=== PATIENT | female | born 2000 | race Caucasian/White ===

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

== ENCOUNTER 2020-04-19 11:29 | Emergency (ER) | payer OTHER ==
[2020-04-19 12:25] LABS: GLUCOSE, URINE (UA) NEGATIVE (NEGATIVE); KETONES,URINE (UA) >=80 mg/dL (NEGATIVE); LEUKOCYTE ESTERASE, URINE NEGATIVE (NEGATIVE); NITRITE,URINE NEGATIVE (NEGATIVE); OCCULT BLOOD,URINE LARGE (NEGATIVE); PROTEIN,URINE 100 mg/dL (NEGATIVE); UROBILINOGEN,URINE 0.2 (NORMAL) E.U./dL (NORMAL)
--- NOTE | 2020-04-19 12:30 | ED Physician Documentation ---
PD HPI FEMALE - Stated complaint Stated Complaint: FEMALE - Chief complaint Chief Complaint: Abd Pain - History obtained from History obtained from: Patient - Additional information Additional information: 20-year-old woman has a 1-year-old copper IUD in place. She also has a history of homozygous factor V Leiden without history of DVT or PE but because of that cannot take hormonal control. For the last 2 months she has had daily cramping and bleeding going through about 5 pads per day. Pain is central and nonradiating. Declines pain medication at this juncture. Review of Systems Constitutional: reports: Reviewed and negative Cardiac: reports: Reviewed and negative Respiratory: reports: Reviewed and negative PD PAST MEDICAL HISTORY - Past Medical History Cardiovascular: None Respiratory: None Neuro: None, Migraines Endocrine/Autoimmune: None GI: C.difficile : None Psych: None Musculoskeletal: None Derm: None Other Past Medical History: Dx with toxic shock in 2017. Factor 5. Bariatric surgery February 2020. - Past Surgical History Past Surgical History: No General: Gastric surgery - Present Medications Home Medications: Ambulatory Orders Medication Instructions Recorded Confirmed Aspirin 81 mg PO 09/14/19 SUMAtriptan [Imitrex] 25 mg PO BID PRN #10 tablet 09/14/19 - Allergies Allergies/Adverse Reactions: Allergies Allergy/AdvReac Type Severity Reaction Status Date / Time No Known Drug Allergies Allergy Verified 04/19/20 11:38 - Social History Does the pt smoke?: No Smoking Status: Never smoker - Immunizations Immunizations are current?: Yes PD ED PE NORMAL - Vitals Vital signs reviewed: Yes - General General: Alert and oriented X 3, No acute distress - Abdomen Abdomen: Normal bowel sounds, Soft, Non tender - Female Female : 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 The IUD was removed without issue.) - Derm Derm: Normal color, Warm and dry, No rash - Extremities Extremities: No edema, No calf tenderness / cord - Neuro Neuro: Alert and oriented X 3, Normal speech Results - Vitals Vitals: Vital Signs - 24 hr 04/19/20 04/19/20 11:39 13:35 Temperature 36.5 C 37.1 C Heart Rate 99 70 Respiratory 16 16 Rate Blood Pressure 130/96 H 134/83 H O2 Saturation 98 97 Oxygen O2 Source Room air - Labs Labs: Laboratory Tests 04/19/20 04/19/20 04/19/20 12:10 12:22 12:22 WBC 5.5 RBC 4.77 Hgb 14.8 Hct 42.8 MCV 89.7 MCH 31.0 MCHC 34.6 RDW 14.0 Plt Count 203 MPV 10.3 Neut # (Auto) 3.4 Lymph # (Auto) 1.5 [place] # (Auto) 0.4 Eos # (Auto) 0.1 Baso # (Auto) 0.0 Absolute Nucleated RBC 0.00 Nucleated RBC % 0.0 Sodium 138 Potassium 3.3 L Chloride 104 Carbon Dioxide 21 Anion Gap 13.0 BUN 9 Creatinine 0.7 Estimated GFR (MDRD) 107 Glucose 82 Calcium 9.4 Total Bilirubin 1.3 H AST 18 ALT 12 Alkaline Phosphatase 66 Total Protein 7.6 Albumin 4.8 Globulin 2.8 Albumin/Globulin Ratio 1.7 Lipase 54 H Serum HCG, Qual Urine Color RED/BLOODY Urine Clarity BLOODY Urine pH 6.0 Ur Specific [place] >=1.030 H Urine Protein 100 H Urine Glucose (UA) NEGATIVE Urine Ketones >=80 H Urine Occult Blood LARGE H Urine Nitrite NEGATIVE Urine Bilirubin NEGATIVE Urine Urobilinogen 0.2 (NORMAL) Ur Leukocyte Esterase NEGATIVE Urine RBC TNTC H Urine WBC 0-3 Ur Squamous Epith Cells FEW Squamous Urine Bacteria Few Ur Microscopic Review INDICATED Urine Culture Comments NOT INDICATED Urine HCG, Qual TNP 04/19/20 12:22 WBC RBC Hgb Hct MCV MCH MCHC RDW Plt Count MPV Neut # (Auto) Lymph # (Auto) [place] # (Auto) Eos # (Auto) Baso # (Auto) Absolute Nucleated RBC Nucleated RBC % Sodium Potassium Chloride Carbon Dioxide Anion Gap BUN Creatinine Estimated GFR (MDRD) Glucose Calcium Total Bilirubin AST ALT Alkaline Phosphatase Total Protein Albumin Globulin Albumin/Globulin Ratio Lipase Serum HCG, Qual NEGATIVE Urine Color Urine Clarity Urine pH Ur Specific [place] Urine Protein Urine Glucose (UA) Urine Ketones Urine Occult Blood Urine Nitrite Urine Bilirubin Urine Urobilinogen Ur Leukocyte Esterase Urine RBC Urine WBC Ur Squamous Epith Cells Urine Bacteria Ur Microscopic Review Urine Culture Comments Urine HCG, Qual - Rads (name of study) Pelvic sono Radiology: EMP read contemporaneously (Located in the cervix is the IUD and there is a right hemorrhagic cyst) PD MEDICAL DECISION MAKING - ED course ED course: 20-year-old woman with an IUD in place presents with 2 months worth of daily vaginal bleeding and pelvic pain. Declined pain medication. Ultrasonography demonstrates that the IUD was malpositioned after discussion she wanted it removed and this was done which should be curative. Also discussed the incidental ovarian cyst and follow-up for same was advised. Discussed the need for barrier control until follow-up with gynecology. Departure - Departure Disposition: 01 Home, Self Care Clinical Impression: Pelvic pain, Vaginal bleeding Malpositioned IUD Qualifiers: Encounter type: initial encounter Qualified Code(s): T83.32XA - Displacement of intrauterine contraceptive device, initial encounter Cyst of ovary Qualifiers: Laterality: right Qualified Code(s): N83.201 - Unspecified ovarian cyst, right side Condition: Good Record reviewed to determine appropriate education?: Yes Comments: You were seen today for ongoing Vaginal bleeding and pelvic pain which based on the ultrasound was likely due to the IUD being located in your cervix as opposed to within the uterus. After discussion we removed the IUD today, bear in mind you will need to use an alternative form of nonhormonal control (given your history of factor V Leiden) such as condoms for now. [place]. He also had an ovarian cyst, consider repeat ultrasonography in about 6 weeks to make sure that that has cleared up. Return if worsening. You can take ibuprofen as needed for the pain. Pain should be minimal after today.
[2020-04-19 12:34] LABS: BASOPHILS % (AUTO) 0.5 %; EOSINOPHILS # (AUTO) 0.1 10^3/uL (0.0-0.7); HGB - HEMOGLOBIN 14.8 g/dL (12.0-16.0); LYMPHOCYTES # (AUTO) 1.5 10^3/uL (1.5-3.5); LYMPHOCYTES % (AUTO) 26.9 %; MEAN CORPUSCULAR HGB CONC 34.6 g/dL (32.0-36.0); MEAN CORPUSCULAR VOLUME 89.7 fL (81.0-99.0); MEAN PLATELET VOLUME 10.3 fL (7.9-10.8); MONOCYTES # (AUTO) 0.4 10^3/uL (0.0-1.0); MONOCYTES % (AUTO) 7.7 %; NEUTROPHILS # (AUTO) 3.4 10^3/uL (1.5-6.6); NEUTROPHILS % (AUTO) 62.7 %; PLT - PLATELET COUNT 203 10^3/uL (130-450); RED BLOOD COUNT 4.77 10^6/uL (4.20-5.40); WHITE BLOOD COUNT 5.5 x10^3/uL (4.8-10.8)
[2020-04-19 12:37] LABS: BILIRUBIN,URINE NEGATIVE (NEGATIVE); CLARITY,URINE BLOODY (CLEAR); ICTOTEST,URINE NEGATIVE
[2020-04-19 12:38] LABS: RBC,URINE TNTC /HPF (0-5); SQUAMOUS EPITHELIAL CELL,UR FEW Squamous (<= Few)
[2020-04-19 12:39] LABS: BACTERIA,URINE Few /HPF (None Seen)
[2020-04-19 12:47] LABS: ALBUMIN 4.8 g/dL (3.2-5.5); ALBUMIN/GLOBULIN RATIO 1.7 (1.0-2.2); BILIRUBIN,TOTAL 1.3 mg/dL (0.2-1.0); CALCIUM 9.4 mg/dL (8.5-10.3); CREATININE 0.7 mg/dL (0.4-1.0); TOTAL PROTEIN 7.6 g/dL (6.7-8.2)
[2020-04-19 13:27] LABS: HCG,QUALITATIVE BLOOD NEGATIVE
--- NOTE | 2020-04-19 14:12 | Ultrasound Report ---
PROCEDURE: Pelvic w/Transvag+Doppler Comp INDICATIONS: pelvic pain, bleeding TECHNIQUE: Real-time scanning was performed of the pelvic organs, with image documentation. Additional endovagi nal scanning was necessary due to incomplete visualization of the adnexal and endometrial structures by transabdominal scanning. COMPARISON: None. FINDINGS: Transabdominal scanning: Limited scanning through the kidneys shows no hydronephrosis. No pathologi c free abdominal or pelvic fluid. Endovaginal scanning: Uterus: Uterus is normal in size at 8.1 x 3.8 x 4.5 cm. The endometrium measures 3 mm in combined t hickness. A cyst is seen along the lower uterine segment of the uterus measuring 5 mm. An IUD is seen. On these images, the IUD is low lying, seen at the level of the cervix. The right T-b ar is embedded within the right myometrium. Ovaries: The right ovary measures 5.1 x 1.7 x 3.7 cm and demonstrates a hemorrhagic appearing cyst that measures 2.2 cm. The left ovary measures 3 x 2.5 x 3.6 cm. No adnexal masses are seen. IMPRESSION: The IUD is improperly located, and is seen at the level of the cervix, with the right T-bar within th e right myometrium. Please consider a gynecology consultation, if clinically appropriate. There is a hemorrhagic cyst involving the right ovary measuring 2.2 cm. Please consider a short-term follow-up ultrasound in 6 weeks to ensure resolution/improvement. Note: Findings and recommendations discussed by telephone with Dr. Looney at 1:10 PM [place] time on Reviewed by: Austin Lyons MD on 04/19/2020 1:11 PM [facility] Approved by: Austin Lyons MD on 04/19/2020 1:11 PM [facility] Station ID: [id number]
[2020-04-19 14:36] VITALS: BP 117/83
== END 2020-04-19 14:36 | disposition home or self-care (01) ==
LOC: ED 11:29
DX: T83.32XA Displacement of intrauterine contraceptive device, initial encounter (principal); Y84.8 Other medical procedures as the cause of abnormal reaction of the patient, or of later complication, without mention of misadventure at the time of the procedure; Z30.432 Encounter for removal of intrauterine contraceptive device; R10.2 Pelvic and perineal pain; N93.9 Abnormal uterine and vaginal bleeding, unspecified; N83.201 Unspecified ovarian cyst, right side; D68.51 Activated protein C resistance; Z98.84 Bariatric surgery status; Z79.82 Long term (current) use of aspirin
CPT/HCPCS: 36415; 76830; 76856; 80053; 81001; 81003; 81025; 83690; 84703; 85025; 87086; 93975; 99284

== ENCOUNTER 2020-07-08 02:07 | Outpatient (CLI) | payer OTHER | END 2020-07-08 02:08 | disposition critical access hospital (66) | LOC: EMS 02:07 | PROVIDERS: ATTEND Surgery | DX: R10.30 Lower abdominal pain, unspecified (principal); R55 Syncope and collapse | CPT/HCPCS: A0425; A0429 ==

== ENCOUNTER 2020-07-08 02:28 | Emergency (ER) | payer OTHER ==
--- NOTE | 2020-07-08 02:33 | ED Physician Documentation ---
History of Present Illness - Stated complaint Stated Complaint: SYNCOPE/ ABD PX - History obtained from History obtained from: Patient - Additonal information Additional information: Patient is a 20-year-old female who presents by ambulance with pelvic pain. The patient reports that she has a history of factor V Leiden deficiency. She reports that she has a copper IUD in place. She reports it was placed 1 month ago. Previously she had an indwelling copper IUD that was malpositioned and had to be removed.She denies any chest pain or lower extremity pain or any history of pulmonary embolism or DVT. Review of Systems Constitutional: reports: Reviewed and negative Eyes: reports: Reviewed and negative Ears: reports: Reviewed and negative Nose: reports: Reviewed and negative Throat: reports: Reviewed and negative Cardiac: reports: Reviewed and negative Respiratory: reports: Reviewed and negative GI: reports: Reviewed and negative : reports: Other (pelvic pain) Skin: reports: Reviewed and negative Musculoskeletal: reports: Reviewed and negative Neurologic: reports: Reviewed and negative Psychiatric: reports: Reviewed and negative Endocrine: reports: Reviewed and negative Immunocompromised: reports: Reviewed and negative PD PAST MEDICAL HISTORY - Past Medical History Cardiovascular: None Respiratory: None Neuro: None, Migraines Endocrine/Autoimmune: None GI: C.difficile : None Psych: None Musculoskeletal: None Derm: None - Past Surgical History Past Surgical History: No General: Gastric surgery - Present Medications Home Medications: Ambulatory Orders Medication Instructions Recorded Confirmed Aspirin 81 mg PO DAILY 09/14/19 07/08/20 SUMAtriptan [Imitrex] 25 mg PO BID PRN #10 tablet 09/14/19 07/08/20 - Allergies Allergies/Adverse Reactions: Allergies Allergy/AdvReac Type Severity Reaction Status Date / Time No Known Drug Allergies Allergy Verified 07/08/20 02:42 - Social History Does the pt smoke?: No Smoking Status: Never smoker - Immunizations Immunizations are current?: Yes PD ED PE NORMAL - Vitals Vital signs reviewed: Yes - General General: Alert and oriented X 3, No acute distress - HEENT HEENT: PERRL - Neck Neck: Supple, no meningeal sign - Cardiac Cardiac: RRR, No murmur - Respiratory Respiratory: Clear bilaterally - Abdomen Abdomen: Normal bowel sounds, Soft, Other (tender to palpation in the lower abdomen and pelvis. 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 note.) - Derm Derm: Warm and dry - Extremities Extremities: No deformity - Neuro Neuro: Alert and oriented X 3 - Psych Psych: Normal mood, Normal affect Results - Vitals Vitals: Vital Signs - 24 hr 07/08/20 07/08/20 07/08/20 02:33 02:45 05:00 Temperature 36.8 C Heart Rate 77 60 Heart Rate [ 87 Sitting] Heart Rate [ 99 Standing] Heart Rate [ 74 Supine] Respiratory 16 16 Rate Blood Pressure 112/72 106/65 Blood Pressure 109/72 [Sitting] Blood Pressure 93/63 [Standing] Blood Pressure 117/76 [Supine] O2 Saturation 100 99 Oxygen O2 Source Room air - Labs Labs: Laboratory Tests 07/08/20 07/08/20 07/08/20 02:57 03:18 03:18 WBC 11.1 H RBC 3.86 L Hgb 12.4 Hct 36.7 L MCV 95.1 MCH 32.1 H MCHC 33.8 RDW 12.4 Plt Count 197 MPV 10.9 H Neut # (Auto) 8.2 H Lymph # (Auto) 1.9 [place] # (Auto) 0.7 Eos # (Auto) 0.1 Baso # (Auto) 0.1 Absolute Nucleated RBC 0.00 Nucleated RBC % 0.0 PT 15.7 H INR 1.4 H APTT 25.4 Sodium Potassium Chloride Carbon Dioxide Anion Gap BUN Creatinine Estimated GFR (MDRD) Glucose Lactic Acid Calcium Total Bilirubin AST ALT Alkaline Phosphatase Total Protein Albumin Globulin Albumin/Globulin Ratio Lipase Urine Color DARK YELLOW Urine Clarity CLEAR Urine pH 6.0 Ur Specific [place] >=1.030 H Urine Protein 30 H Urine Glucose (UA) NEGATIVE Urine Ketones >=80 H Urine Occult Blood NEGATIVE Urine Nitrite NEGATIVE Urine Bilirubin NEGATIVE Urine Urobilinogen 0.2 (NORMAL) Ur Leukocyte Esterase TRACE H Urine RBC 0-5 Urine WBC 0-3 Ur Squamous Epith Cells MANY Squamous H Urine Bacteria Rare Urine Casts 6-10 Hyaline Casts Urine Mucus Marked Strands Ur Microscopic Review INDICATED Urine Culture Comments NOT INDICATED Urine HCG, Qual NEGATIVE Urine Opiates Screen NEGATIVE Ur Oxycodone Screen NEGATIVE Urine Methadone Screen NEGATIVE Ur Propoxyphene Screen NEGATIVE Ur Barbiturates Screen NEGATIVE Ur Tricyclics Screen NEGATIVE Ur Phencyclidine Scrn NEGATIVE Ur Amphetamine Screen NEGATIVE U Methamphetamines Scrn NEGATIVE U Benzodiazepines Scrn NEGATIVE Urine Cocaine Screen NEGATIVE U Cannabinoids Screen NEGATIVE Ethyl Alcohol 07/08/20 07/08/20 03:18 03:18 WBC RBC Hgb Hct MCV MCH MCHC RDW Plt Count MPV Neut # (Auto) Lymph # (Auto) [place] # (Auto) Eos # (Auto) Baso # (Auto) Absolute Nucleated RBC Nucleated RBC % PT INR APTT Sodium 139 Potassium 3.3 L Chloride 105 Carbon Dioxide 22 Anion Gap 12.0 BUN 9 Creatinine 0.7 Estimated GFR (MDRD) 107 Glucose 97 Lactic Acid 1.0 Calcium 9.1 Total Bilirubin 1.2 H AST 13 ALT 10 Alkaline Phosphatase 52 Total Protein 6.5 L Albumin 4.3 Globulin 2.2 Albumin/Globulin Ratio 2.0 Lipase 27 Urine Color Urine Clarity Urine pH Ur Specific [place] Urine Protein Urine Glucose (UA) Urine Ketones Urine Occult Blood Urine Nitrite Urine Bilirubin Urine Urobilinogen Ur Leukocyte Esterase Urine RBC Urine WBC Ur Squamous Epith Cells Urine Bacteria Urine Casts Urine Mucus Ur Microscopic Review Urine Culture Comments Urine HCG, Qual Urine Opiates Screen Ur Oxycodone Screen Urine Methadone Screen Ur Propoxyphene Screen Ur Barbiturates Screen Ur Tricyclics Screen Ur Phencyclidine Scrn Ur Amphetamine Screen U Methamphetamines Scrn U Benzodiazepines Scrn Urine Cocaine Screen U Cannabinoids Screen Ethyl Alcohol < 5.0 PD MEDICAL DECISION MAKING - ED course Complexity details: reviewed old records, reviewed results, re-evaluated patient, considered differential (ovarain cyst, torsion, IUD complication.), d/w patient, d/w family, other (patient signed out at shift change to dr. henry singer.) ED course: 20 y/o f w pelvic pain. US shows free fluid and low IUD placement. Dr. Benavides consulted for evaluation. - Consults Consults: Discussed case with (DR. Jennifer Benavides. will come evaluate patient. ) Departure - Departure Clinical Impression: Pelvic pain, Hemorrhagic cyst of left ovary Malpositioned IUD Qualifiers: Encounter type: subsequent encounter Qualified Code(s): T83.32XD - Displacement of intrauterine contraceptive device, subsequent encounter
[2020-07-08] MEDS ORDERED: SODIUM CHLORIDE 0.9% 1,000 ML IV STA ×2 (02:46→06:47)
[2020-07-08 03:02] LABS: MUDS CUTOFF CONCENTRATIONS CUTOFF CONC BELOW:
[2020-07-08 03:03] LABS: GLUCOSE, URINE (UA) NEGATIVE (NEGATIVE); KETONES,URINE (UA) >=80 mg/dL (NEGATIVE); LEUKOCYTE ESTERASE, URINE TRACE (NEGATIVE); NITRITE,URINE NEGATIVE (NEGATIVE); OCCULT BLOOD,URINE NEGATIVE (NEGATIVE); PROTEIN,URINE 30 mg/dL (NEGATIVE); UROBILINOGEN,URINE 0.2 (NORMAL) E.U./dL (NORMAL)
[2020-07-08 03:05] LABS: BILIRUBIN,URINE NEGATIVE (NEGATIVE); CLARITY,URINE CLEAR (CLEAR); HCG UR QUAL NEGATIVE; ICTOTEST,URINE NEGATIVE
[2020-07-08 03:09] LABS: BACTERIA,URINE Rare /HPF (None Seen); CASTS, URINE 6-10 Hyaline Casts /LPF; MUCUS,URINE Marked Strands; RBC,URINE 0-5 /HPF (0-5); SQUAMOUS EPITHELIAL CELL,UR MANY Squamous (<= Few)
[2020-07-08 03:12] LABS: AMPHETAMINE SCREEN,URINE NEGATIVE (NEGATIVE); BENZODIAZEPINES SCREEN, URINE NEGATIVE (NEGATIVE); COCAINE SCREEN URINE NEGATIVE (NEGATIVE); METHAMPHETAMINES SCREEN, URINE NEGATIVE (NEGATIVE); OPIATE SCREEN, URINE NEGATIVE (NEGATIVE); TRICYCLIC ANTIDEPRESSANT,URINE NEGATIVE (NEGATIVE)
[2020-07-08 03:13] LABS: METHADONE SCREEN, URINE NEGATIVE (NEGATIVE); OXYCODONE SCREEN, URINE NEGATIVE (NEGATIVE); PROPOXYPHENE SCREEN, URINE NEGATIVE (NEGATIVE)
[2020-07-08 03:27] LABS: BASOPHILS # (AUTO) 0.1 10^3/uL (0.0-0.1); BASOPHILS % (AUTO) 0.5 %; EOSINOPHILS # (AUTO) 0.1 10^3/uL (0.0-0.7); EOSINOPHILS % (AUTO) 0.8 %; HGB - HEMOGLOBIN 12.4 g/dL (12.0-16.0); LYMPHOCYTES # (AUTO) 1.9 10^3/uL (1.5-3.5); LYMPHOCYTES % (AUTO) 17.5 %; MEAN CORPUSCULAR HEMOGLOBIN 32.1 pg (27.0-31.0); MEAN CORPUSCULAR HGB CONC 33.8 g/dL (32.0-36.0); MEAN CORPUSCULAR VOLUME 95.1 fL (81.0-99.0); MEAN PLATELET VOLUME 10.9 fL (7.9-10.8); MONOCYTES # (AUTO) 0.7 10^3/uL (0.0-1.0); MONOCYTES % (AUTO) 6.7 %; NEUTROPHILS # (AUTO) 8.2 10^3/uL (1.5-6.6); NEUTROPHILS % (AUTO) 74.2 %; PLT - PLATELET COUNT 197 10^3/uL (130-450); RED BLOOD COUNT 3.86 10^6/uL (4.20-5.40); RED CELL DISTRIBUTION WIDTH 12.4 % (12.0-15.0); WHITE BLOOD COUNT 11.1 x10^3/uL (4.8-10.8)
[2020-07-08 03:32] LABS: INR 1.4 (0.8-1.2); PT - PROTHROMBIN TIME 15.7 secs (9.9-12.6)
[2020-07-08 03:39] LABS: ALBUMIN 4.3 g/dL (3.2-5.5); ALKALINE PHOSPHATASE 52 IU/L (42-121); ALT ALANINE AMINOTRANSFERASE 10 IU/L (10-60); AST ASPARTATE AMINOTRANSFERASE 13 IU/L (10-42); BILIRUBIN,TOTAL 1.2 mg/dL (0.2-1.0); BUN - BLOOD UREA NITROGEN 9 mg/dL (6-20); CALCIUM 9.1 mg/dL (8.5-10.3); CARBON DIOXIDE - CO2 22 mmol/L (21-32); CHLORIDE 105 mmol/L (101-111); CREATININE 0.7 mg/dL (0.4-1.0); GLUCOSE 97 mg/dL (70-100); LIPASE 27 U/L (22-51); PARTIAL THROMBOPLASTIN TIME 25.4 secs (24.9-33.3); SODIUM 139 mmol/L (135-145); TOTAL PROTEIN 6.5 g/dL (6.7-8.2)
[2020-07-08 07:25] VITALS: BP 100/70
--- NOTE | 2020-07-08 08:29 | CONSULTATION NOTE ---
Referring Provider Consult Date: 07/08/20 History of Present Illness - History of Present Illness HPI Comment/Other: Asked by ER MD to consult for malposition of IUD and abnormal US. Came to ER today with syncope that started after onset of severe abd pain. Feels kind of like when she had PID and kind of like when her last IUD was being expelled. Currently pain is mild. PMH: factor 5 on ASA daily, has never had VTE even while on combination contraceptives. Hx of c.diff. Anemia. ADHD. Migraines. PSH: none Allergies: NKDA Meds: none SH: no t/e/d. Steady partner. ROS: no fevers. LMP 4w ago. FH: uncle with colon cancer O: AVSS Alert, comfortable, NAD Abd soft, nt/nd EFG normal Vagina pink without lesions Cervix: IUD base seen at external os. Mucoid discharge present. US read as: Abnormal appearance of left adnexa with possible mass lesion vs. complex hemorrhagic cyst measuring up to 7.5 x 3.5 x 5.3cm. No torsion. Large FF. Hct 36 US 04/19/20 without adnexal masses or free fluid A/P: 20yo with abdominal pain likely due to hemorrhagic cyst, then syncope. IUD malposition. IUD removed by grasping strings with ring forceps, gentle traction with a patient cough, was removed intact, uncomplicated procedure. Hemorrhagic cyst: discussed that pain can last for 3-4 more days typically. Avoid intercourse while in pain. Take tylenol and ibuprofen PRN. Follow up PRN worsening symptoms Possible left adnexal mass: looks to me to be likely organized blood clot. Ultrasound in 04/2020 without adnexal masses. Will get f/u US in 6w. Factor 5 leiden, need for contraception: pt thought that she was unable to use any hormonal method. Educated that she can use progesterone only methods but no estrogen. She likes IUD but has expelled paragard twice. RTC for Mirena. Disc options of minipill and nexplanon as well. History - Past Medical History Cardiovascular: reports: None Respiratory: reports: None Neuro: reports: None, Migraines Endocrine/Autoimmune: reports: None GI: reports: C.difficile : reports: None Psych: reports: None Musculoskeletal: reports: None Derm: reports: None - Past Surgical History General: reports: Gastric surgery Meds/Allgy - Home Medications Home Medications: Ambulatory Orders Medication Instructions Recorded Confirmed Aspirin 81 mg PO DAILY 09/14/19 07/08/20 SUMAtriptan [Imitrex] 25 mg PO BID PRN #10 tablet 09/14/19 07/08/20 - Allergies Allergies/Adverse Reactions: Allergies Allergy/AdvReac Type Severity Reaction Status Date / Time No Known Drug Allergies Allergy Verified 07/08/20 02:42 Exam - Vital Signs Vital Signs: Vital Signs x48h Temp Pulse Pulse Pulse Pulse Resp BP 07/08/20 08:00 98.1 F 07/08/20 07:25 68 18 100/70 07/08/20 05:00 60 16 106/65 07/08/20 02:45 87 99 74 07/08/20 02:33 98.2 F 77 16 112/72 BP BP BP Pulse Ox 07/08/20 08:00 07/08/20 07:25 100 07/08/20 05:00 99 07/08/20 02:45 109/72 93/63 117/76 07/08/20 02:33 100 Conclusion/Plan - Lab Results Fish Bones: 07/08/20 03:18 07/08/20 03:18
--- NOTE | 2020-07-08 08:57 | Ultrasound Report ---
PROCEDURE: Pelvic w/Transvag+Doppler Comp INDICATIONS: pelvic pain TECHNIQUE: Real-time scanning was performed of the pelvic organs, with image documentation. Additional endovagi nal scanning was necessary due to incomplete visualization of the adnexal and endometrial structures by transabdominal scanning. COMPARISON: None. FINDINGS: Transabdominal scanning: Limited scanning through the kidneys shows no hydronephrosis. No pathologi c free abdominal or pelvic fluid. Endovaginal scanning: Uterus: Uterus is normal in size at 9.1 x 5.6 x 4.2 cm. The endometrium measures 11.5 mm in combine d thickness. IUD is present within the lower uterine segment. Arms are not well visualized. No gross perforation. Ovaries: Right ovary measures 3.8 x 3.3 x 2.4 cm with a volume of 15.7 cc. Arterial and venous flow are identified. Less than 12 follicles are noted. Within the region of the right adnexa, complex focu s of heterotopic echogenicity is identified measuring 7.5 x 3.5 x 5.3 cm. Vascular flow is identified . Significant free fluid is noted within the pelvis. IMPRESSION: 1. Complex mass within the right adnexa with significant pelvic fluid. No torsion at time of exam. Th is could represent a complex hemorrhagic cyst. It is noted that a patient had a negative urine pregna ncy test. However, given presence of free fluid and nondescript pelvic mass, ectopic cannot be definitively excluded and recommend serum hCG level as clinically appropriate. In addition, tubo- ovarian abscess cannot be definitively excluded and recommend correlation patient's symptoms and labo ratory values. 2. IUD is in the lower uterine segment and repositioning is recommended. The above findings are concordant with preliminary report. Reviewed by: Lauren Calderón MD on 07/08/2020 8:56 AM PDT Approved by: Lauren Calderón MD on 07/08/2020 8:56 AM PDT Station ID: [id number]
== END 2020-07-08 08:10 | disposition home or self-care (01) ==
LOC: EDUNIT# → ED 02:28
DX: N83.202 Unspecified ovarian cyst, left side (principal); R10.2 Pelvic and perineal pain; R55 Syncope and collapse; T83.32XA Displacement of intrauterine contraceptive device, initial encounter; Y84.8 Other medical procedures as the cause of abnormal reaction of the patient, or of later complication, without mention of misadventure at the time of the procedure; Y76.8 Miscellaneous obstetric and gynecological devices associated with adverse incidents, not elsewhere classified; D68.51 Activated protein C resistance; Z79.82 Long term (current) use of aspirin
CPT/HCPCS: 36415; 76830; 76856; 80053; 80306; 80320; 81001; 81003; 81025; 83605; 83690; 85025; 85610; 85730; 87086; 93975; 96360; 96361; 99283

== ENCOUNTER 2020-08-19 10:03 | Outpatient (CLI) | payer OTHER ==
--- NOTE | 2020-08-19 16:06 | Ultrasound Report ---
PROCEDURE: Pelvic w/Transvaginal INDICATIONS: ADNEXAL MASS TECHNIQUE: Real-time scanning was performed of the pelvic organs, with image documentation. Additional endovagi nal scanning was necessary due to incomplete visualization of the adnexal and endometrial structures by transabdominal scanning. COMPARISON: Pelvic ultrasound 03/20/2020, 07/07/2020 FINDINGS: Transabdominal scanning: Limited scanning through the kidneys shows no hydronephrosis. No pathologi c free abdominal or pelvic fluid. Endovaginal scanning: Uterus: Uterus is normal in size at 8.3 x 4.1 x 4.8 cm. The endometrium measures 10.2 mm in combine d thickness. IUD is been removed. Ovaries: Right ovary measures 40 x 24 x 36 mm. Hypoechoic focus is present measuring 25 x 19 x 23 mm . Left ovary measures 47 x 28 x 22 mm. Complex focus of echogenicity is noted measuring 23 x 17 x 20 mm. IMPRESSION: 1. Right ovarian cyst, new compared to prior exam. 2. Focus of complex echogenicity is present within the left ovary appearing suggestive of hemorrhagic cyst. It is noted that a larger more complex appearance was noted in the adnexal region on prior exa m which is not visualized. Reviewed by: Lauren Calderón MD on 08/19/2020 4:04 PM PST Approved by: Lauren Calderón MD on 08/19/2020 4:04 PM PST Station ID: [id number]
== END 2020-08-19 10:04 | disposition home or self-care (01) ==
LOC: DI 10:03
PROVIDERS: ATTEND Obstetrics & Gynecology
DX: N83.201 Unspecified ovarian cyst, right side (principal); R93.89 Abnormal findings on diagnostic imaging of other specified body structures
CPT/HCPCS: 76830; 76856

== ENCOUNTER 2020-09-25 14:09 | Emergency (ER) | payer OTHER ==
[2020-09-25 14:14] VITALS: BP 113/81
[2020-09-25] MEDS ORDERED: BACITRACIN ZINC OINT 1 PACKET TOP STA (14:49)
[2020-09-25] MEDS ORDERED: TETANUS/DIPHTHERIA/PERTUSSIS 0.5 ML SYRINGE IM ONE (14:54)
--- NOTE | 2020-09-25 15:02 | ED Physician Documentation ---
History of Present Illness - Stated complaint Stated Complaint: RT PINKY LAC - Chief complaint Chief Complaint: Laceration - History obtained from History obtained from: Patient - Additonal information Additional information: 20-year-old female presents emergency department for evaluation of a deep laceration/abrasion to the right pinky finger when using a cheese grater at home. She cut a large swath of skin off the distal tip of the finger and has had a difficult time getting bleeding controlled. There is no laceration amenable to closure. Unknown last tetanus. Patient is right-hand dominant. Review of Systems Constitutional: reports: Reviewed and negative Ears: reports: Reviewed and negative Nose: reports: Reviewed and negative Throat: reports: Reviewed and negative Cardiac: reports: Reviewed and negative Respiratory: reports: Reviewed and negative GI: reports: Reviewed and negative : reports: Reviewed and negative Skin: reports: Abrasion (s) (right small finger) PD PAST MEDICAL HISTORY - Past Medical History Past Medical History: No Cardiovascular: None Respiratory: None Neuro: None, Migraines Endocrine/Autoimmune: None GI: C.difficile : None Psych: None Musculoskeletal: None Derm: None - Past Surgical History Past Surgical History: No General: Gastric surgery - Present Medications Home Medications: Ambulatory Orders Medication Instructions Recorded Confirmed Aspirin 81 mg PO DAILY 09/14/19 07/08/20 SUMAtriptan [Imitrex] 25 mg PO BID PRN #10 tablet 09/14/19 07/08/20 - Allergies Allergies/Adverse Reactions: Allergies Allergy/AdvReac Type Severity Reaction Status Date / Time No Known Drug Allergies Allergy Verified 09/25/20 14:14 - Social History Does the pt smoke?: No Smoking Status: Never smoker Does the pt drink ETOH?: No Does the pt have substance abuse?: No - Immunizations Immunizations are current?: No Immunizations: TDAP >10years/unknown - POLST Patient has POLST: No PD ED PE EXPANDED - Extremities Extremities: Right finger(s) (7 mmx3 mm None right small distal tip finger ulnar side. Cleansed with soap and water, bacitracin and then Gelfoam pad nonstick dressing and Coban applied) Results - Vitals Vitals: Vital Signs - 24 hr 09/25/20 14:11 Temperature 36.2 C L Heart Rate 84 Respiratory 17 Rate Blood Pressure 113/81 H O2 Saturation 100 Oxygen O2 Source Room air PD MEDICAL DECISION MAKING - ED course Complexity details: d/w patient ED course: 89-year-old female presents to the emergency department for evaluation of a deep right small finger abrasion sustained when using grader at home. This is not amenable to primary closure with sutures. Most of the bleeding was controlled with direct pressure. Bacitracin was applied over the wound as well as S urgifoam gel pad. Patient is advised to remove her dressing in 24 hours and then wash gently daily with warm soap and water apply antibiotic ointment and a simple bandage. Tetanus was updated today. Routine wound care and return precautions discussed Departure - Departure Disposition: Home, Self Care Clinical Impression: Abrasion Condition: Stable Record reviewed to determine appropriate education?: Yes Comments: May see the abrasion on your finger is not something that were able to close with sutures today the antibiotic ointment and the Gelfoam that we placed should get the bleeding to stop. In 24 hours you may gently remove the dressing wash with warm soap and water and then reapply antibiotic ointment and a bandage. Your tetanus was updated today and should be good for 7 to 10 years. Return to the emergency department if you develop fevers, have finger redness, swelling, any milky drainage or any concerns of infection. This wound will likely take about 2 weeks to heal
== END 2020-09-25 15:12 | disposition home or self-care (01) ==
LOC: ED 14:09
DX: S60.416A Abrasion of right little finger, initial encounter (principal); W27.4XXA Contact with kitchen utensil, initial encounter; Y93.G1 Activity, food preparation and clean up; Y92.009 Unspecified place in unspecified non-institutional (private) residence as the place of occurrence of the external cause; Z23 Encounter for immunization; Z79.82 Long term (current) use of aspirin
CPT/HCPCS: 90471; 90715; 99281; 99283; A9270